=== PATIENT | female | born 1960 | race Caucasian/White ===

== ENCOUNTER → 2018-02-16 19:22 | Outpatient (CLI) | payer OTHER, SELFPAY | PROVIDERS: PCP Family Medicine; Visit Provider Physician Assistant | DX: N39.0 Urinary tract infection, site not specified (principal) | CPT/HCPCS: 87077; 87086; 87186 ==

== ENCOUNTER → 2018-03-11 09:35 | Outpatient (CLI) | payer OTHER, SELFPAY ==
[2018-03-11 10:24] LABS: Add Manual Diff / Slide Review NO; Basophils Absolute Auto 0 /uL (0-100); Basophils Percent Auto 0.4 % (0-2); Eosinophils Absolute Auto 0 /uL (0-450); Eosinophils Percent Auto 1.3 % (2-4); Hematocrit 40.5 % (36-46); Hemoglobin 13.7 g/dL (12.0-16.0); Lymphocytes Absolute Auto 1000 /uL (1100-4500); Lymphocytes Percent Auto 33.3 % (25-40); Mean Corpuscular HGB Conc 33.8 % (30-36); Mean Corpuscular Hemoglobin 29.4 PG (26-34); Mean Corpuscular Volume 86.8 fL (80-100); Monocytes Absolute Auto 300 /uL (0-900); Monocytes Percent Auto 10.1 % (3-14); Neutrophils Absolute Auto 1700 /uL (1500-7000); Neutrophils Percent Auto 54.9 % (50-75); Platelet Count 278 X10^3/uL (150-400); Red Blood Cell Count 4.66 X10^6/uL (4.0-5.2); Red Cell Distribution Width 12.4 % (11.6-14.8); White Blood Cell Count 3.1 X10^3/uL (4.5-11.0)
[2018-03-11 11:18] LABS: Alanine Aminotransferase 45 IU/L (9-52); Albumin 4.9 g/dL (3.5-5.0); Albumin Globulin Ratio 1.4 (1.0-2.8); Alkaline Phosphatase 43 U/L (38-126); Aspartate Aminotransferase 32 IU/L (14-36); BUN Creatinine Ratio 23.3 (6-22); Bilirubin Total 0.4 mg/dL (0.2-1.3); Blood Urea Nitrogen 14 mg/dL (7-17); Calcium 10.3 mg/dL (8.4-10.2); Carbon Dioxide 26 mmol/L (22-32); Chloride 107 mmol/L (98-107); Estimated Glomerular Filt Rate > 60.0 mL/min (>60); Globulin 3.6 g/dL (1.7-4.1); Glucose 93 mg/dL (70-100); HEMOLYSIS < 15 (0-50); Magnesium 1.9 mg/dL (1.6-2.3); Potassium 4.1 mmol/L (3.4-5.1); Sodium 143 mmol/L (137-145); Total Protein 8.5 g/dL (6.3-8.2)
[2018-03-11 11:30] LABS: Free T4, Direct Thyroxine 1.86 ng/dL (0.78-2.19)
[2018-03-11 11:44] LABS: Thyroid Stimulating Hormone < 0.02 uIU/mL (0.47-4.68)
== END ==
PROVIDERS: PCP Family Medicine; Visit Provider Internal Medicine
DX: R00.2 Palpitations (principal)
CPT/HCPCS: 36415; 80053; 83735; 84439; 84443; 85025

== ENCOUNTER → 2018-03-18 14:57 | Outpatient (CLI) | payer OTHER, SELFPAY ==
--- NOTE | 2018-03-18 | DI.RAD.S_ITS ---
PROCEDURE: XR CHEST 2V INDICATIONS: SHORTNESS OF BREATH TECHNIQUE: 2 views of the chest were acquired. COMPARISON: [facility], , CHEST 1 VIEW, 03/03/2012, 11:42. FINDINGS: Surgical changes and devices: None. Lungs and pleura: No pleural effusions or pneumothorax. Lungs are clear. Mediastinum: Mediastinal contours are normal. Heart size is normal. Bones and chest wall: No suspicious bony abnormalities. Soft tissues appear unremarkable. IMPRESSION: No acute cardiopulmonary findings. Dictated by: Thais Bentley M.D. on 03/18/2018 at 16:57 Approved by: Thais Bentley M.D. on 03/18/2018 at 16:58
== END ==
PROVIDERS: Visit Provider Internal Medicine
DX: R06.02 Shortness of breath (principal)
CPT/HCPCS: 71046

== ENCOUNTER → 2018-10-18 06:45 | Outpatient (CLI) | payer OTHER, SELFPAY ==
[2018-10-18 07:51] LABS: Add Manual Diff / Slide Review NO; Basophils Absolute Auto 0 /uL (0-100); Basophils Percent Auto 0.6 % (0-2); Eosinophils Absolute Auto 0 /uL (0-450); Eosinophils Percent Auto 1.5 % (2-4); Hematocrit 39.9 % (36-46); Hemoglobin 13.6 g/dL (12.0-16.0); Lymphocytes Absolute Auto 1000 /uL (1100-4500); Lymphocytes Percent Auto 35.6 % (25-40); Mean Corpuscular HGB Conc 34.2 % (30-36); Mean Corpuscular Hemoglobin 29.8 PG (26-34); Mean Corpuscular Volume 87.3 fL (80-100); Monocytes Absolute Auto 300 /uL (0-900); Monocytes Percent Auto 10.3 % (3-14); Neutrophils Absolute Auto 1500 /uL (1500-7000); Platelet Count 245 X10^3/uL (150-400); Red Blood Cell Count 4.58 X10^6/uL (4.0-5.2); Red Cell Distribution Width 12.8 % (11.6-14.8); White Blood Cell Count 2.8 X10^3/uL (4.5-11.0)
[2018-10-18 07:57] LABS: Prothrombin Time 11.1 SECONDS (10.1-12.7)
[2018-10-18 08:05] LABS: Alanine Aminotransferase 32 IU/L (9-52); Albumin 4.7 g/dL (3.5-5.0); Albumin Globulin Ratio 1.4 (1.0-2.8); Alkaline Phosphatase 41 U/L (38-126); Aspartate Aminotransferase 31 IU/L (14-36); Bilirubin Total 0.7 mg/dL (0.2-1.3); Blood Urea Nitrogen 16 mg/dL (7-17); Calcium 10.1 mg/dL (8.4-10.2); Carbon Dioxide 29 mmol/L (22-32); Chloride 104 mmol/L (98-107); Cholesterol 219 mg/dL (140-199); Estimated Glomerular Filt Rate > 60.0 mL/min (>60); Globulin 3.3 g/dL (1.7-4.1); Glucose 106 mg/dL (70-100); HDL Cholesterol 63 mg/dL (40-60); HEMOLYSIS < 15 (0-50); LDL Cholesterol Calculated 145 mg/dL (<100); Potassium 4.1 mmol/L (3.4-5.1); Sodium 139 mmol/L (137-145); Triglycerides 53 mg/dL (35-150)
[2018-10-18 08:12] LABS: Erythrocyte Sedimentation Rate 9 MM/HR (0-20)
[2018-10-18 09:03] LABS: Free T3, Triiodothyronine Free 3.59 pg/mL (2.77-5.27); Free T4, Direct Thyroxine 1.23 ng/dL (0.78-2.19)
[2018-10-18 09:17] LABS: Thyroid Stimulating Hormone 0.22 uIU/mL (0.47-4.68)
== END ==
PROVIDERS: PCP Physician Assistant; Visit Provider Physician Assistant
DX: I10 Essential (primary) hypertension (principal); E03.9 Hypothyroidism, unspecified; M32.9 Systemic lupus erythematosus, unspecified; M32.8 Other forms of systemic lupus erythematosus
CPT/HCPCS: 36415; 80053; 80061; 84439; 84443; 84481; 85025; 85610; 85651

== ENCOUNTER → 2019-03-23 06:53 | Outpatient (CLI) | payer OTHER, SELFPAY ==
[2019-03-23 08:30] LABS: Cholesterol 248 mg/dL (140-199); HDL Cholesterol 69 mg/dL (40-60); LDL Cholesterol Calculated 165 mg/dL (<100); Triglycerides 71 mg/dL (35-150)
[2019-03-23 08:36] LABS: Microalbumi Creatinin Ratio Ur 10.9 ug/mg CR (<30); Microalbumin Urine Random 1.8 mg/dL (0-1.6)
== END ==
PROVIDERS: PCP Physician Assistant; Visit Provider Physician Assistant
DX: E03.9 Hypothyroidism, unspecified (principal); E78.5 Hyperlipidemia, unspecified; I10 Essential (primary) hypertension
CPT/HCPCS: 36415; 80061; 82043; 82570

== ENCOUNTER → 2020-08-27 14:26 | Outpatient (CLI) | payer OTHER, SELFPAY ==
[2020-08-27 14:42] LABS: Bacteria Urine None Seen; WBC Urine None Seen (0-5/HPF)
[2020-08-27 15:35] LABS: Add Manual Diff / Slide Review NO; Basophils Absolute Auto 0 /uL (0-100); Basophils Percent Auto 0.5 % (0-2); Eosinophils Absolute Auto 0 /uL (0-450); Eosinophils Percent Auto 1.2 % (2-4); Hematocrit 38.4 % (36-46); Hemoglobin 13.1 g/dL (12.0-16.0); Lymphocytes Absolute Auto 1200 /uL (1100-4500); Mean Corpuscular HGB Conc 34.1 % (30-36); Mean Corpuscular Hemoglobin 30.3 PG (26-34); Mean Corpuscular Volume 88.9 fL (80-100); Monocytes Absolute Auto 300 /uL (0-900); Monocytes Percent Auto 7.6 % (3-14); Neutrophils Absolute Auto 2000 /uL (1500-7000); Neutrophils Percent Auto 55.7 % (50-75); Platelet Count 259 X10^3/uL (150-400); Red Blood Cell Count 4.32 X10^6/uL (4.0-5.2); Red Cell Distribution Width 12.7 % (11.6-14.8); White Blood Cell Count 3.5 X10^3/uL (4.5-11.0)
[2020-08-27 15:36] LABS: Appearance Urine UA CLEAR; Bilirubin Urine UA NEGATIVE (NEGATIVE); Color Urine UA YELLOW; Glucose Urine UA NEGATIVE (Negative); Ketones Urine UA NEGATIVE (NEGATIVE); Leukocyte Esterase Urine UA NEGATIVE (NEGATIVE); Nitrite Urine UA NEGATIVE (Negative); Occult Blood Urine UA TRACE-LYSED (Negative); Protein Urine UA NEGATIVE (Negative); Urobilinogen Urine UA 0.2 E.U./dL (0.2)
[2020-08-27 15:51] LABS: pH Urine UA 6.5 (4.5-8.0)
[2020-08-27 15:53] LABS: Alanine Aminotransferase 34 IU/L (<35); Albumin 4.8 g/dL (3.5-5.0); Albumin Globulin Ratio 1.7 (1.0-2.8); Alkaline Phosphatase 36 U/L (38-126); Aspartate Aminotransferase 33 IU/L (14-36); BUN Creatinine Ratio 15.3 (6-22); Bilirubin Total 0.5 mg/dL (0.2-1.3); Blood Urea Nitrogen 13 mg/dL (7-17); C-Reactive Protein Quant < 0.5 mg/dL (<1.0); Calcium 10.1 mg/dL (8.4-10.2); Carbon Dioxide 26 mmol/L (22-32); Chloride 107 mmol/L (98-107); Estimated Glomerular Filt Rate > 60.0 mL/min (>60); Globulin 2.9 g/dL (1.7-4.1); Glucose 105 mg/dL (70-100); HEMOLYSIS < 15 (0-50); RBC Urine 0-1/HPF (0-5/HPF); Sodium 141 mmol/L (137-145); Squamous Epithelial Cell Urine 0-1 /HPF (0-5/HPF); Total Protein 7.7 g/dL (6.3-8.2)
[2020-08-27 15:54] LABS: Culture Indicated Urine Cult Not Indicated
[2020-08-27 19:03] LABS: Erythrocyte Sedimentation Rate 7 MM/HR (0-20)
== END ==
PROVIDERS: Referring Provider Internal Medicine Rheumatology; Visit Provider Internal Medicine Rheumatology
DX: M32.10 Systemic lupus erythematosus, organ or system involvement unspecified (principal); Z79.899 Other long term (current) drug therapy
CPT/HCPCS: 36415; 80053; 81001; 85025; 85651; 86140

== ENCOUNTER 2020-11-13 11:20 | Emergency (ER) | payer OTHER, SELFPAY ==
[2020-11-13] VITALS (9 sets, daily range): BP systolic 141–190; BP diastolic 64–86; PULSE 66–92; RESP 16–19; TEMP 36.9; O2SAT 98–100; BMI 27.3
--- NOTE | 2020-11-13 11:25 | DI.RAD.S_ITS ---
PROCEDURE: XR CHEST 1V INDICATIONS: chest pain TECHNIQUE: One view of the chest was acquired. COMPARISON: [facility], CR, XR CHEST 2V, 03/18/2018, 15:05. FINDINGS: Surgical changes and devices: None. Lungs and pleura: Lungs are clear. No pleural effusions or pneumothorax. Mediastinum: Mediastinal contours appear normal. Heart size is enlarged. Bones and chest wall: No suspicious bony lesions. Overlying soft tissues appear unremarkable. IMPRESSION: No acute pulmonary process. Dictated by: Katie Evans M.D. on 11/13/2020 at 11:47 Approved by: Katie Evans M.D. on 11/13/2020 at 11:47
[2020-11-13 11:43] LABS: Add Manual Diff / Slide Review NO; Basophils Absolute Auto 0 /uL (0-100); Basophils Percent Auto 0.7 % (0-2); Eosinophils Absolute Auto 0 /uL (0-450); Hematocrit 40.9 % (36-46); Hemoglobin 13.7 g/dL (12.0-16.0); Lymphocytes Absolute Auto 1400 /uL (1100-4500); Mean Corpuscular HGB Conc 33.5 % (30-36); Mean Corpuscular Hemoglobin 29.7 PG (26-34); Mean Corpuscular Volume 88.7 fL (80-100); Monocytes Absolute Auto 300 /uL (0-900); Monocytes Percent Auto 7.4 % (3-14); Neutrophils Absolute Auto 2600 /uL (1500-7000); Neutrophils Percent Auto 58.9 % (50-75); Platelet Count 336 X10^3/uL (150-400); Red Blood Cell Count 4.61 X10^6/uL (4.0-5.2); Red Cell Distribution Width 13.3 % (11.6-14.8); White Blood Cell Count 4.4 X10^3/uL (4.5-11.0)
[2020-11-13 11:52] LABS: Alanine Aminotransferase 40 IU/L (<35); Albumin 5.3 g/dL (3.5-5.0); Albumin Globulin Ratio 1.5 (1.0-2.8); Alkaline Phosphatase 56 U/L (38-126); Aspartate Aminotransferase 36 IU/L (14-36); BUN Creatinine Ratio 15.9 (6-22); Bilirubin Total 0.6 mg/dL (0.2-1.3); Blood Urea Nitrogen 10 mg/dL (7-17); Calcium 10.5 mg/dL (8.4-10.2); Carbon Dioxide 29 mmol/L (22-32); Chloride 104 mmol/L (98-107); Creatine Kinase 66 U/L (30-135); Estimated Glomerular Filt Rate > 60.0 mL/min (>60); Globulin 3.6 g/dL (1.7-4.1); Glucose 91 mg/dL (70-100); HEMOLYSIS < 15 (0-50); Lipase 53 U/L (23-300); Magnesium 2.2 mg/dL (1.6-2.3); Potassium 4.1 mmol/L (3.4-5.1); Sodium 142 mmol/L (137-145); Total Protein 8.9 g/dL (6.3-8.2)
[2020-11-13] MEDS: ASPIRIN 81 MG CHEW TAB 324 MG PO (11:53)
[2020-11-13 12:04] LABS: Troponin I < 0.012 ng/mL (0.01-0.034)
--- NOTE | 2020-11-13 12:12 | ED_ITS ---
HPI - Chest Pain General Chief Complaint: Chest Pain Stated Complaint: chest pressure Time Seen by Provider: 11/13/20 11:33 Source: patient Mode of arrival: Ambulatory History of Present Illness HPI narrative: Patient is a 60-year-old female who is here for evaluation of chest pressure. States is located in the center of her chest. She has had a on a daily basis all day while she is awake for the past 2 weeks. Started after she received her 1st Moderna COVID vaccine. She states that the chest pressure is not worse with breathing palpation eating moving. Has not tried anything for the symptoms. She denies shortness of breath. No coughing. Related Data Home Medications Medication Instructions Recorded Confirmed Charleen Root See Rx Instructions .ROUTE .COMPLEX 10/17/18 11/11/18 Levothyroxine 100 mg See Rx Instructions .ROUTE .COMPLEX 10/17/18 11/11/18 Multi-Green See Rx Instructions .ROUTE .COMPLEX 10/17/18 11/11/18 lisinopril 10 mg tablet 10 mg PO DAILY 10/17/18 11/11/18 Previous Rx's Medication Instructions Recorded estradiol 10 mcg vaginal tablet 10 mcg VAG 2XW #8 tab 03/09/19 (Yuvafem) Allergies Allergy/AdvReac Type Severity Reaction Status Date / Time No Known Drug Allergies Allergy Verified 11/11/18 12:24 Review of Systems Constitutional Constitutional: Denies fever(s) and Denies headache(s) ENT Ears, Nose, Mouth, and Throat: Denies headache(s) Cardiovascular Cardiovascular: Reports as per HPI and Reports system reviewed and no additional complaints, except as documented Respiratory Respiratory: Reports as per HPI and Reports system reviewed and no additional complaints, except as documented Gastrointestinal Gastrointestinal: Reports as per HPI and Reports system reviewed and no additional complaints, except as documented Musculoskeletal Musculoskeletal: Reports system reviewed and no additional complaints, except as documented Integumentary/Breasts Skin/Breast: Reports system reviewed and no additional complaints, except as documented Neurologic Neurologic: Denies headache(s) Hematologic/Lymphatic On Anticoagulants: No Patient History Medical History Essential hypertension Hypothyroidism (acquired) Lupus (systemic lupus erythematosus) Social History Smoking Status: Former smoker Tobacco: How many years used: 3 (I only smoked with my friends in high school.) second hand exposure: No alcohol intake: current (a beer or glass of wine every now and then with dinner.) substance use type: does not use Smoking Status: Former smoker Exam Initial Vital Signs Initial Vital Signs: Vital Signs Blood Pressure 141/86 H 11/13/20 11:26 Const General: cooperative and comfortable HENMT Head: normal to inspection and normocephalic Eyes General: appearance normal, both eyes and all related structures Resp Effort & Inspection: normal respiratory effort Auscultation: clear to auscultation bilaterally Cardio Rate: regular rate Rhythm: regular rhythm Skin General: no rashes or lesions noted Neuro General: patient alert, patient awake, patient oriented x3 and moves all extremities Speech: speech normal Extrem General: normal to inspection and capillary refill normal Psych Appearance: grossly normal and well kempt Course Orders Ordered: ED Orders 11/13/20 11:25 XR chest 1V Stat EKG-12 Lead Stat 11/13/20 11:35 Complete Blood Count AUTO DIFF Stat Comprehensive Metabolic Panel Stat Free T4, Direct Thyroxine Stat Lipase Stat Magnesium Stat TSH w/ Reflex to FT4 Stat Troponin & CK Cardiac Panel Stat Discontinued Medications Aspirin (Aspirin 81 Mg Chew Tab) 324 mg PO NOW ONE Stop: 11/13/20 11:40 Last Admin: 11/13/20 11:53 Dose: 324 mg Documented by: MAKENZIE Vital Signs Vital signs: Vital Signs - 8 hr 11/13/20 11:26 11/13/20 11:27 11/13/20 11:29 Temperature 98.5 F Pulse Rate 84 92 H Respiratory Rate 17 16 Blood Pressure 141/86 H 141/86 H Pulse Oximetry 100 100 11/13/20 11:30 11/13/20 11:31 11/13/20 12:00 Temperature Pulse Rate 79 77 69 Respiratory Rate 17 18 18 Blood Pressure 190/81 H Pulse Oximetry 100 100 98 11/13/20 12:01 11/13/20 12:30 11/13/20 12:31 Temperature Pulse Rate 70 67 66 Respiratory Rate 16 17 19 Blood Pressure 161/73 H 144/64 H Pulse Oximetry 98 98 98 MDM - Chest Pain Lab Data Attestation: I reviewed the patient's lab results. Result diagrams: 11/13/20 11:35 11/13/20 11:35 Labs: Lab Results 11/13/20 11/13/20 11/13/20 Range/Units 11:35 11:35 11:35 WBC 4.4 L (4.5-11.0) X10^3/uL RBC 4.61 (4.0-5.2) X10^6/uL Hgb 13.7 (12.0-16.0) g/dL Hct 40.9 (36-46) % MCV 88.7 (80-100) fL MCH 29.7 (26-34) PG MCHC 33.5 (30-36) % RDW 13.3 (11.6-14.8) % Plt Count 336 (150-400) X10^3/uL Neut % (Auto) 58.9 (50-75) % Lymph % (Auto) 32.0 (25-40) % [place] % (Auto) 7.4 (3-14) % Eos % (Auto) 1.0 L (2-4) % Baso % (Auto) 0.7 (0-2) % Neut # (Auto) 2600 (5939-9238) /uL Lymph # (Auto) 1400 (8537-5020) /uL [place] # (Auto) 300 (0-900) /uL Eos # (Auto) 0 (0-450) /uL Baso # (Auto) 0 (0-100) /uL Sodium 142 (137-145) mmol/L Potassium 4.1 (3.4-5.1) mmol/L Chloride 104 (98-107) mmol/L Carbon Dioxide 29 (22-32) mmol/L BUN 10 (7-17) mg/dL Creatinine 0.63 (0.52-1.04) mg/dL Estimated GFR > 60.0 (>60) mL/min BUN/Creatinine Ratio 15.9 (6-22) Glucose 91 (70-100) mg/dL Calcium 10.5 H (8.4-10.2) mg/dL Magnesium 2.2 (1.6-2.3) mg/dL Total Bilirubin 0.6 (0.2-1.3) mg/dL AST 36 (14-36) IU/L ALT 40 H (<35) IU/L Alkaline Phosphatase 56 (38-126) U/L Total Creatine Kinase 66 (30-135) U/L CK-MB (CK-2) TNP CK-MB (CK-2) Rel Index TNP Troponin I < 0.012 (0.01-0.034) ng/mL Total Protein 8.9 H (6.3-8.2) g/dL Albumin 5.3 H (3.5-5.0) g/dL Globulin 3.6 (1.7-4.1) g/dL Albumin/Globulin Ratio 1.5 (1.0-2.8) Lipase 53 (23-300) U/L TSH 19.80 H (0.47-4.68) uIU/mL Free T4 1.01 (0.78-2.19) ng/dL Imaging Data Chest x-ray: Radiologist's Impression: [address] [id number] ReportSigned Patient: Omaira Hopper KMR#: [id number]: 1Acct:[id number]/Sex: 60 / FDate of Service: 11/13/20Loc: EDAccession Number: [id number] Procedure: XR chest 1V Ordering Provider: Evgeny Allen D.O. PROCEDURE: XR CHEST 1V INDICATIONS: chest pain TECHNIQUE: One view of the chest was acquired. COMPARISON: [facility], [facility], XR CHEST 2V, 03/18/2018, 15:05. FINDINGS: Surgical changes and devices: None. Lungs and pleura: Lungs are clear. No pleural effusions or pneumothorax. Mediastinum: Mediastinal contours appear normal. Heart size is enlarged. Bones and chest wall: No suspicious bony lesions. Overlying soft tissues appear unremarkable. IMPRESSION: No acute pulmonary process. Dictated by: Katie Evans M.D. on 11/13/2020 at 11:47 Approved by: Katie Evans M.D. on 11/13/2020 at 11:47 ECG Data Attestation: I personally reviewed and interpreted this ECG as follows: Interpretation: Sinus rhythm Ventricular rate is 70 Normal axis Normal QRS Normal QTC No ST T wave changes MDM Narrative Medical decision making narrative: Nontoxic. Chest x-ray is unremarkable. Labs unremarkable. Troponin is negative. EKG is unremarkable. His troponin was drawn after patient has had consistent symptoms on a daily basis for the past 2 weeks. Afebrile. Low suspicion for gallbladder pathology. Low suspicion for pancreatitis. Could potentially be stomach ulcers/reflux disease. I did discuss this with her. We did discuss potentially starting on a reflux medicine to see if this does not improve her symptoms. No emergent condition found on workup today. Patient could be safely discharged home. She is given return precautions. She expressed understanding and agreement. Discharge Plan Departure Patient Disposition: Home Clinical Impression: Atypical chest pain Instructions: DI for Atypical Chest Pain Activity Restrictions/Additional Instructions: I do recommend that you continue with the plan to have a 2nd coronavirus vaccine. Your workup today is very reassuring that everything is okay with your heart and lungs. Continue all of your medications as directed. Return to the emergency department for any new or worsening symptoms. Prescriptions: No Action estradiol [Yuvafem] 10 mcg tablet 10 mcg VAG 2XW Qty: 8 RF: 3 Levothyroxine 100 mg See Rx Instructions .ROUTE .COMPLEX RF: 0 lisinopril 10 mg tablet 10 mg PO DAILY RF: 0 Charleen Root See Rx Instructions .ROUTE .COMPLEX RF: 0 Multi-Green See Rx Instructions .ROUTE .COMPLEX RF: 0 Referrals: Miscellaneous,Doctor, MD [Primary Care Provider] -
[2020-11-13 13:19] LABS: Free T4, Direct Thyroxine 1.01 ng/dL (0.78-2.19)
== END 2020-11-13 13:04 | disposition home or self-care (01) ==
PROVIDERS: Emergency Provider Emergency Medicine
DX: R07.89 Other chest pain (principal)
CPT/HCPCS: 36415; 71045; 80053; 82550; 83690; 83735; 84439; 84443; 84484; 85025; 93005; 93010; 99284

== ENCOUNTER → 2021-01-31 07:35 | Outpatient (CLI) | payer OTHER, SELFPAY ==
[2021-01-31 09:20] LABS: Cholesterol 254 mg/dL (140-199); HDL Cholesterol 76 mg/dL (40-60); LDL Cholesterol Calculated 167 mg/dL (<100); Triglycerides 57 mg/dL (35-150)
[2021-01-31 09:23] LABS: Free T4, Direct Thyroxine 0.97 ng/dL (0.78-2.19)
[2021-01-31 09:37] LABS: Thyroid Stimulating Hormone 17.2 uIU/mL (0.47-4.68)
[2021-02-01 06:18] LABS: Triiodothyronine T3 Total 98 ng/dL (71-180)
== END ==
PROVIDERS: PCP Physician Assistant; Referring Provider Physician Assistant; Visit Provider Physician Assistant
DX: E03.9 Hypothyroidism, unspecified (principal); E78.5 Hyperlipidemia, unspecified
CPT/HCPCS: 36415; 80061; 84439; 84443; 84480

== ENCOUNTER → 2021-02-26 14:12 | Outpatient (CLI) | payer OTHER, SELFPAY ==
[2021-02-26 15:53] LABS: Erythrocyte Sedimentation Rate 5 MM/HR (0-20)
[2021-02-26 16:04] LABS: C-Reactive Protein Quant < 0.5 mg/dL (<1.0)
[2021-02-27 07:04] LABS: Complement C3 120 mg/dL (82-167)
[2021-03-04 00:36] LABS: Complement Total CH50 > 60 U/mL (>41)
== END ==
PROVIDERS: PCP Physician Assistant; Referring Provider Internal Medicine Rheumatology; Visit Provider Internal Medicine Rheumatology
DX: M32.10 Systemic lupus erythematosus, organ or system involvement unspecified (principal)
CPT/HCPCS: 36415; 85384; 85390; 85610; 85613; 85651; 85670; 85730; 86038; 86140; 86146; 86147; 86160; 86162

== ENCOUNTER → 2021-12-12 10:04 | Outpatient (CLI) | payer OTHER, SELFPAY | PROVIDERS: PCP Family Medicine; Referring Provider Family Medicine; Visit Provider Family Medicine | DX: Z13.820 Encounter for screening for osteoporosis (principal); Z78.0 Asymptomatic menopausal state; Z87.311 Personal history of (healed) other pathological fracture | CPT/HCPCS: 77080 ==

== ENCOUNTER → 2022-01-09 07:06 | Outpatient (CLI) | payer OTHER, SELFPAY ==
[2022-01-09 08:09] LABS: Add Manual Diff / Slide Review NO; Basophils Absolute Auto 0 /uL (0-100); Basophils Percent Auto 0.6 % (0-2); Eosinophils Absolute Auto 100 /uL (0-450); Eosinophils Percent Auto 2.1 % (2-4); Hematocrit 40.1 % (36-46); Hemoglobin 13.6 g/dL (12.0-16.0); Lymphocytes Absolute Auto 1100 /uL (1100-4500); Lymphocytes Percent Auto 32.4 % (25-40); Mean Corpuscular Hemoglobin 29.5 PG (26-34); Monocytes Absolute Auto 300 /uL (0-900); Monocytes Percent Auto 8.1 % (3-14); Neutrophils Absolute Auto 1900 /uL (1500-7000); Neutrophils Percent Auto 56.8 % (50-75); Platelet Count 288 X10^3/uL (150-400); Red Blood Cell Count 4.61 X10^6/uL (4.0-5.2); White Blood Cell Count 3.3 X10^3/uL (4.5-11.0)
[2022-01-09 08:40] LABS: Alanine Aminotransferase 40 IU/L (<35); Albumin 4.8 g/dL (3.5-5.0); Albumin Globulin Ratio 1.5 (1.0-2.8); Alkaline Phosphatase 48 U/L (38-126); Aspartate Aminotransferase 31 IU/L (14-36); BUN Creatinine Ratio 24.6 (6-22); Bilirubin Total 0.5 mg/dL (0.2-1.3); Blood Urea Nitrogen 14 mg/dL (7-17); Carbon Dioxide 27 mmol/L (22-32); Chloride 105 mmol/L (98-107); Cholesterol 224 mg/dL (140-199); Estimated Glomerular Filt Rate > 60 mL/min (>60); Globulin 3.1 g/dL (1.7-4.1); Glucose 93 mg/dL (80-110); HDL Cholesterol 75 mg/dL (40-60); HEMOLYSIS < 15 (0-50); LDL Cholesterol Calculated 135 mg/dL (<100); Potassium 4.1 mmol/L (3.4-5.1); Sodium 142 mmol/L (137-145); Total Protein 7.9 g/dL (6.3-8.2); Triglycerides 68 mg/dL (35-150)
[2022-01-09 08:49] LABS: Creatinine Urine Random 83.7 mg/dL
[2022-01-09 08:53] LABS: Microalbumi Creatinin Ratio Ur 68.1 ug/mg CR (<30); Microalbumin Urine Random 5.7 mg/dL (0-1.6)
[2022-01-09 09:08] LABS: TSH w/ Reflex to FT4 1.58 uIU/mL (0.47-4.68)
== END ==
PROVIDERS: PCP Family Medicine; Referring Provider Family Medicine; Visit Provider Family Medicine
DX: E03.9 Hypothyroidism, unspecified (principal); E78.5 Hyperlipidemia, unspecified; I10 Essential (primary) hypertension; M32.9 Systemic lupus erythematosus, unspecified; Z79.899 Other long term (current) drug therapy
CPT/HCPCS: 36415; 80053; 80061; 82043; 82306; 82570; 84443; 85025

== ENCOUNTER → 2022-11-20 07:16 | Outpatient (CLI) | payer OTHER, SELFPAY ==
[2022-11-20 08:20] LABS: Add Manual Diff / Slide Review NO; Basophils Absolute Auto 0 /uL (0-100); Basophils Percent Auto 0.8 % (0-2); Eosinophils Absolute Auto 100 /uL (0-450); Eosinophils Percent Auto 3.1 % (2-4); Hematocrit 39.9 % (36-46); Hemoglobin 13.7 g/dL (12.0-16.0); Lymphocytes Absolute Auto 1200 /uL (1100-4500); Mean Corpuscular HGB Conc 34.3 % (30-36); Mean Corpuscular Hemoglobin 30.2 PG (26-34); Monocytes Absolute Auto 500 /uL (0-900); Neutrophils Absolute Auto 2400 /uL (1500-7000); Neutrophils Percent Auto 57.1 % (50-75); Platelet Count 309 X10^3/uL (150-400); Red Blood Cell Count 4.53 X10^6/uL (4.0-5.2); White Blood Cell Count 4.2 X10^3/uL (4.5-11.0)
[2022-11-20 08:34] LABS: Alanine Aminotransferase 77 IU/L (<35); Albumin 4.8 g/dL (3.5-5.0); Albumin Globulin Ratio 1.4 (1.0-2.8); Alkaline Phosphatase 44 U/L (38-126); Aspartate Aminotransferase 48 IU/L (14-36); Bilirubin Total 0.8 mg/dL (0.2-1.3); Blood Urea Nitrogen 18 mg/dL (7-17); Calcium 10.1 mg/dL (8.4-10.2); Carbon Dioxide 28 mmol/L (22-32); Chloride 102 mmol/L (98-107); Cholesterol 224 mg/dL (140-199); Estimated Glomerular Filt Rate > 60 mL/min (>60); Globulin 3.4 g/dL (1.7-4.1); Glucose 98 mg/dL (80-110); HDL Cholesterol 54 mg/dL (40-60); HEMOLYSIS < 15 (0-50); LDL Cholesterol Calculated 150 mg/dL (<100); Potassium 3.7 mmol/L (3.4-5.1); Sodium 139 mmol/L (137-145); Total Protein 8.2 g/dL (6.3-8.2); Triglycerides 100 mg/dL (35-150)
[2022-11-20 08:58] LABS: TSH w/ Reflex to FT4 0.59 uIU/mL (0.47-4.68)
== END ==
PROVIDERS: PCP Nurse Practitioner Family; Referring Provider Nurse Practitioner Family; Visit Provider Nurse Practitioner Family
DX: E03.9 Hypothyroidism, unspecified (principal); E78.5 Hyperlipidemia, unspecified; D72.819 Decreased white blood cell count, unspecified
CPT/HCPCS: 36415; 80053; 80061; 84443; 85025

== ENCOUNTER → 2023-01-28 09:51 | Outpatient (CLI) | payer OTHER, SELFPAY ==
--- NOTE | 2023-01-28 | DI.US.S_ITS ---
PROCEDURE: US ABDOMEN LIMITED INDICATIONS: Elevation of levels of liver transaminase levels TECHNIQUE: Real-time scanning was performed of the abdominal and retroperitoneal organs, with image documentation. COMPARISON: None. FINDINGS: Liver: The liver demonstrates diffusely increased echotexture without focal abnormalities consistent with chronic hepatocellular disease/hepatic steatosis. Gallbladder: Gallbladder is normal in sonographic appearance without gallstones, gallbladder wall thickening, pericholecystic fluid, or abnormal sonographic Wong's. Biliary ducts: Intrahepatic bile ducts are non-dilated. Extrahepatic bile duct caliber measures 6.6 mm. Normal is 6-7 mm or less in diameter, or 10 mm or less post-cholecystectomy. Pancreas: Visualized portions of the pancreas are sonographically normal. Miscellaneous: No free abdominal fluid. IMPRESSION: The liver demonstrates diffusely increased echotexture without focal abnormalities consistent with chronic hepatocellular disease/hepatic steatosis. Findings may explain patient's history of abnormal liver function tests. Dictated by: Ruslan Carter M.D. on 01/28/2023 at 11:24 Approved by: Ruslan Carter M.D. on 01/28/2023 at 11:25
== END ==
PROVIDERS: PCP Nurse Practitioner Family; Referring Provider Nurse Practitioner Family; Visit Provider Nurse Practitioner Family
DX: R74.01 Elevation of levels of liver transaminase levels (principal)
CPT/HCPCS: 76705

== ENCOUNTER → 2024-06-30 08:41 | Outpatient (CLI) | payer OTHER, SELFPAY ==
[2024-06-30 09:23] LABS: Hematocrit 40.2 % (36-46); Hemoglobin 13.7 g/dL (12.0-16.0); Mean Corpuscular HGB Conc 34.2 % (30-36); Mean Corpuscular Hemoglobin 30.8 PG (26-34); Mean Corpuscular Volume 90.1 fL (80-100); Platelet Count 289 X10^3/uL (150-400); Red Blood Cell Count 4.46 X10^6/uL (4.0-5.2); White Blood Cell Count 2.9 X10^3/uL (4.5-11.0)
[2024-06-30 09:57] LABS: Alanine Aminotransferase 94 IU/L (<35); Albumin 5.1 g/dL (3.5-5.0); Albumin Globulin Ratio 1.8 (1.0-2.8); Alkaline Phosphatase 56 U/L (38-126); Aspartate Aminotransferase 61 IU/L (14-36); BUN Creatinine Ratio 23.7 (6-22); Bilirubin Total 0.9 mg/dL (0.2-1.3); Blood Urea Nitrogen 18 mg/dL (7-17); Calcium 10.4 mg/dL (8.4-10.2); Carbon Dioxide 24 mmol/L (22-32); Chloride 105 mmol/L (98-107); Cholesterol 230 mg/dL (140-199); Estimated Glomerular Filt Rate > 60 mL/min (>60); Globulin 2.9 g/dL (1.7-4.1); Glucose 100 mg/dL (70-99); HDL Cholesterol 57 mg/dL (40-60); HEMOLYSIS < 15 (0-50); LDL Cholesterol Calculated 151 mg/dL (<100); Sodium 140 mmol/L (137-145); Triglycerides 112 mg/dL (35-150)
[2024-06-30 10:14] LABS: Vitamin D 25 Hydroxy (D3) 32.7 ng/mL (30.0-100.0)
[2024-06-30 13:39] LABS: Neutrophils Absolute Manual 1653 /uL (3000-5900); Total Cells Counted 100
[2024-06-30 13:40] LABS: RBC Morphology Normal Morphology
[2024-07-01 10:36] LABS: Parathyroid Hormone, Intact 61 pg/mL (15-65)
== END ==
PROVIDERS: PCP Student in an Organized Health Care Education/Training Program; Referring Provider Student in an Organized Health Care Education/Training Program; Visit Provider Student in an Organized Health Care Education/Training Program
DX: M32.9 Systemic lupus erythematosus, unspecified (principal); E78.00 Pure hypercholesterolemia, unspecified
CPT/HCPCS: 36415; 80053; 80061; 82306; 82310; 83970; 85025

== ENCOUNTER → 2024-08-14 08:33 | Outpatient (CLI) | payer OTHER, SELFPAY ==
--- NOTE | 2024-08-14 09:00 | DI.US.S_ITS ---
PROCEDURE: US ABDOMEN LIMITED INDICATIONS: elevated LFTS TECHNIQUE: Real-time focused scanning was performed of the abdomen, with image documentation. COMPARISON: [facility], US, US ABDOMEN LIMITED, 01/28/2023, 9:59. FINDINGS: Normal size liver. Moderate to severe hyperechogenicity and density in the liver. Much of the liver is not well characterized by ultrasound due to suboptimal acoustic window. Appropriate direction of flow in the main portal vein. The gallbladder is normal without stones, sludge, wall thickening, or pericholecystic fluid. No biliary dilatation. The visible portion of the pancreas is normal. No visible perihepatic fluid. IMPRESSION: Dense, echogenic liver parenchyma suggesting hepatic steatosis, progressed compared to the prior exam. If further screening for hepatocellular carcinoma is required, contrast-enhanced cross-sectional imaging is recommended. Dictated by: Azra Junior M.D. on 08/14/2024 at 12:34 Approved by: Azra Junior M.D. on 08/14/2024 at 12:36
== END ==
LOC: US 08:33
PROVIDERS: PCP Student in an Organized Health Care Education/Training Program; Referring Provider Student in an Organized Health Care Education/Training Program; Visit Provider Student in an Organized Health Care Education/Training Program
DX: R79.89 Other specified abnormal findings of blood chemistry (principal)
CPT/HCPCS: 76705